=== PATIENT | female | born 1980 | race Caucasian/White ===

== ENCOUNTER 2024-02-06 17:47 | Inpatient (IN) | payer BC ==
[2024-02-06 18:45] VITALS: BMI 31.3
[2024-02-06] MEDS ORDERED: Acetaminophen 500 MG TAB PO PRN (18:45)
[2024-02-06] MEDS ORDERED: Zolpidem Tartrate 5 MG TAB PO PRN (18:45)
[2024-02-06] MEDS ORDERED: Carboprost 250 MCG/ML AMP IM PRN (18:45)
[2024-02-06] MEDS ORDERED: Misoprostol 200 MCG TAB PR PRN (18:45)
[2024-02-06] MEDS ORDERED: Ondansetron PF 4 MG/2 ML Vial IVP PRN (18:45)
[2024-02-06] MEDS ORDERED: Promethazine HCl 25 MG/ML VIAL IM PRN (18:45)
[2024-02-06] MEDS ORDERED: Diphenoxylate HCl/Atropine Tablet PO PRN ×2 (18:45)
[2024-02-06] MEDS ORDERED: Ibuprofen 800 MG TAB PO PRN (18:45)
[2024-02-06] MEDS ORDERED: Lactated Ringer's 1,000 ML IV SCH (18:45)
[2024-02-06] MEDS ORDERED: hydrALAZINE 20 MG/ML VIAL SLOW IVP PRN (18:45)
[2024-02-06] MEDS ORDERED: Lidocaine 1% (PF) 30 ML VIAL SC PRN (18:45)
[2024-02-06] MEDS ORDERED: fentaNYL 50 mcg/mL 1 mL Vial SLOW IVP PRN (18:45)
[2024-02-06] MEDS ORDERED: HYDROcodone/Acetaminophen 5/325 mg Tablet PO PRN ×2 (18:45)
[2024-02-06] MEDS ORDERED: Oxytocin 30 units/NS 500 ML 500 ML IV SCH ×2 (18:45)
[2024-02-06] MEDS ORDERED: Methylergonovine 0.2 MG/ML VIAL IM PRN (18:45)
[2024-02-06] MEDS: Misoprostol 100 MCG TAB VAG SCH (19:52)
[2024-02-06 19:56] LABS: Hematocrit 33.5 % (34.9-44.5); Hemoglobin 11.1 g/dL (12.0-15.5); Mean Corpuscular HGB CONC 33.1 g/dL (32.0-36.0); Mean Corpuscular Hemoglobin 29.2 pg (27.0-33.0); Mean Corpuscular Volume 88.2 fL (81.6-98.3); Mean Platelet Volume 10.5 fL (7.4-10.4); Platelet Count 195 10x3/uL (150-450); RBC Distribution Width 18.9 % (11.5-14.5); White Blood Cell (WBC) Count 10.4 10x3/uL (3.5-10.5)
[2024-02-06 21:28] LABS: HBsAg Index 0.23 S/CO (0-0.99); Hep B Surf Ag - L&D Non-Reactive S/CO (NonReactive)
[2024-02-06 21:40] LABS: Syphilis Antibody Nonreactive (Nonreactive); Syphilis Antibody Index 0.05 S/CO (<1.00 Non-Reactive)
[2024-02-07 03:33] LABS: HIV (1/2) Antibody/Antigen Non-Reactive (NonReactive); HIV 1/2 INDEX 0.11 S/CO (<1.00)
[2024-02-07] MEDS ORDERED: diphenhydrAMINE 50 MG/ML VIAL IVP PRN ×2 (07:08→12:50)
[2024-02-07] MEDS ORDERED: Moisturizing Cream (Eucerin) 113 GM JAR TOP PRN ×2 (07:08→12:50)
[2024-02-07] MEDS ORDERED: Promethazine HCl 25 MG/ML VIAL IM PRN ×2 (07:08→12:50)
[2024-02-07] MEDS ORDERED: Ondansetron PF 4 MG/2 ML Vial IVP PRN ×3 (07:08→12:50)
[2024-02-07] MEDS ORDERED: Acetaminophen 325 MG TAB PO PRN ×2 (07:08→11:55)
[2024-02-07] MEDS ORDERED: ePHEDrine Sulfate 50 MG/10 ML VIAL SLOW IVP PRN (07:08)
[2024-02-07] MEDS ORDERED: Naloxone HCl 0.4 mg/ml Vial IVP PRN ×4 (07:08→12:50)
[2024-02-07] MEDS ORDERED: fentaNYL 2 mcg/Ropivacaine 0.2% Epidural 100 ML CADD EPIDURAL SCH (07:15)
[2024-02-07] MEDS ORDERED: Communication Order-Pharmacy FS SCH ×2 (07:15→13:00)
[2024-02-07] MEDS ORDERED: Lactated Ringer's 500 ML IV PRN (07:29)
[2024-02-07] MEDS ORDERED: Boostrix 0.5 ML (Tdap) VIAL (>/=7 yrs of age) IM ONE (11:55)
[2024-02-07] MEDS ORDERED: diphenhydrAMINE 25 MG CAP PO PRN (11:55)
[2024-02-07] MEDS ORDERED: Bisacodyl 10 MG SUPP PR PRN (11:55)
[2024-02-07] MEDS ORDERED: Lanolin Ointment 7 GM TUBE TOP PRN (11:55)
[2024-02-07] MEDS ORDERED: hydrALAZINE 20 MG/ML VIAL SLOW IVP PRN (11:55)
[2024-02-07] MEDS ORDERED: Vasopressin 20 UNITS/ML VIAL IV SCH (12:00)
[2024-02-07] MEDS ORDERED: Meperidine HCl/PF 25 MG (1 mL) VIAL SLOW IVP PRN (12:50)
[2024-02-07] MEDS ORDERED: HYDROmorphone 0.5 MG/0.5 ML SYRINGE SLOW IVP PRN (12:50)
[2024-02-07] MEDS ORDERED: Naloxone HCl 0.4 mg/ml Vial IV PRN (12:50)
[2024-02-07] MEDS ORDERED: fentaNYL 50 mcg/mL 1 mL Vial SLOW IVP PRN (12:50)
[2024-02-07] MEDS ORDERED: ePHEDrine Sulfate 50 MG/10 ML VIAL ONE (13:00)
[2024-02-07] MEDS ORDERED: Bupivacaine 0.25% HCL 30 ML VIAL ONE (13:00)
[2024-02-07] MEDS ORDERED: Lidocaine 2% MPF 10 ML AMP (For Epidural Use) ONE (13:00)
[2024-02-07] MEDS ORDERED: Ketorolac Tromethamine 30 MG (1 mL) VIAL IVP SCH (13:30)
[2024-02-07] MEDS ORDERED: Ibuprofen 800 MG TAB PO SCH (14:00)
[2024-02-07] MEDS: Ketorolac Tromethamine 30 MG (1 mL) VIAL IVP PRN (18:43)
[2024-02-07] MEDS: Azithromycin 500 MG VIAL ONE (19:16)
[2024-02-07] MEDS: CEFAZOLIN 2 GM VIAL ONE (19:16)
[2024-02-07] MEDS: fentaNYL/Ropivacaine Epidural 100 ML ONE (19:16)
[2024-02-07] MEDS: Ondansetron PF 4 MG/2 ML Vial ONE (19:17)
[2024-02-07] MEDS: Tranexamic Acid 1,000 MG/10 ML VIAL ONE (19:17)
[2024-02-07] MEDS: fentaNYL 50 mcg/mL 1 mL Vial ONE (19:17)
[2024-02-07] MEDS: Morphine PF 10 MG/10 ML VIAL ONE (19:17)
[2024-02-07] MEDS: Terbutaline Sulfate 1 MG/ML VIAL ONE (19:17)
[2024-02-07] MEDS: Promethazine HCl 25 MG/ML VIAL ONE (19:17)
[2024-02-07] MEDS: Oxytocin 10 UNITS/ML VIAL ONE (19:18)
[2024-02-07] MEDS: Calcium Chloride 1 GM/10 ML Abboject SYRINGE ONE (19:18)
[2024-02-07] MEDS: Docusate 100 MG CAP PO SCH (20:15)
[2024-02-08] MEDS ORDERED: HYDROcodone/Acetaminophen 5/325 mg Tablet PO PRN (01:00)
[2024-02-08 04:05] LABS: Hematocrit 27.7 % (34.9-44.5); Hemoglobin 8.9 g/dL (12.0-15.5); Mean Corpuscular HGB CONC 32.1 g/dL (32.0-36.0); Mean Corpuscular Hemoglobin 29.3 pg (27.0-33.0); Mean Corpuscular Volume 91.1 fL (81.6-98.3); Mean Platelet Volume 10.8 fL (7.4-10.4); Platelet Count 155 10x3/uL (150-450); RBC Distribution Width 19.1 % (11.5-14.5); Red Blood Cell (RBC) Count 3.04 10x6/uL (3.90-5.03); White Blood Cell (WBC) Count 11.4 10x3/uL (3.5-10.5)
[2024-02-08] MEDS: Ferrous Sulfate 325 MG TAB PO SCH (05:14)
[2024-02-08] MEDS: HYDROcodone/Acetaminophen 5/325 mg Tablet PO PRN (08:41)
[2024-02-08] MEDS: Prenatal Vitamin 1 TAB PO SCH (08:42)
[2024-02-08] MEDS: Ibuprofen 800 MG TAB PO SCH (13:51)
[2024-02-08] MEDS: Simethicone Chewable 80 MG TAB PO PRN (21:42)
[2024-02-09 07:53] VITALS: BP 110/66; TEMP 98.2
== END 2024-02-09 10:55 | disposition home or self-care (01) | DRG 788 ==
LOC: CSHLD 17:47 → CSHPP 02-07 14:30
PROVIDERS: ADMIT Obstetrics & Gynecology; ATTEND Obstetrics & Gynecology
PROC: 10D00Z1 Extraction of Products of Conception, Low, Open Approach (ICD-10-PCS; principal; 2024-02-07)
DX: O76 Abnormality in fetal heart rate and rhythm complicating labor and delivery (principal); O09.523 Supervision of elderly multigravida, third trimester; Z3A.39 39 weeks gestation of pregnancy; Z37.0 Single live birth; Z79.82 Long term (current) use of aspirin
CPT/HCPCS: 36415; 51702; 85027; 86780; 86850; 86900; 86901; 87340; 87389; J0665; J1885; J2274; J2405; J2550; J2590; J3010